=== PATIENT | female | born 1985 | race American Indian/Alaskan Native ===

== ENCOUNTER 2017-10-04 23:51 | Inpatient (IN) | payer SELFPAY ==
[2017-10-04 23:51] VITALS: BMI 30.3
[2017-10-05] MEDS ORDERED: Morphine 4 MG/ML VIAL IVP STA (00:06)
[2017-10-05] MEDS ORDERED: Morphine 4 MG/ML VIAL ONE ×2 (00:16→16:32)
--- NOTE | 2017-10-05 00:19 | ED PDOC ---
HPI: Abdomen Time Seen by Provider: 10/04/17 23:54 Chief Complaint (Nursing): Abdominal Pain Chief Complaint (Provider): abdominal pain History Per: Patient History/Exam Limitations: no limitations Onset/Duration Of Symptoms: Days Outside of [place] travel?: No Current Symptoms Are (Timing): Still Present Location Of Pain/Discomfort: Diffuse Additional Complaint(s): 32 year old female presents to the ED complaining of abdominal girth and pain onset one month. Patient was seen in [facility] and diagnosed with necrotic fibroid and was transferred to [facility] for further evaluation. Denies nausea, vomiting, and diarrhea. PMD: Provider TBD Past Medical History Reviewed: Historical Data, Nursing Documentation, Vital Signs Vital Signs: Last Vital Signs Temp 97.5 F L 10/05/17 02:50 Pulse 60 10/05/17 02:50 Resp 18 10/05/17 02:50 BP 127/81 10/05/17 02:50 Pulse Ox 99 10/05/17 02:50 - Medical History PMH: No Chronic Diseases Denies: Depression - Family History Family History: States: Unknown Family Hx - Home Medications Home Medications: Ambulatory Orders Medication Instructions Recorded No Known Home Med 12/18/11 - Allergies Allergies/Adverse Reactions: Allergies Allergy/AdvReac Type Severity Reaction Status Date / Time No Known Allergies Allergy Verified 12/18/11 12:11 Review of Systems ROS Statement: Except As Marked, All Systems Reviewed And Found Negative Gastrointestinal: Positive for: Abdominal Pain. Negative for: Nausea, Vomiting , Diarrhea Psych: Negative for: Suicidal ideation (homicidal ideation) Physical Exam - Reviewed Nursing Documentation Reviewed: Yes Vital Signs Reviewed: Yes - Physical Exam Appears: Positive for: Well, Non-toxic, No Acute Distress Head Exam: Positive for: ATRAUMATIC, NORMAL INSPECTION, NORMOCEPHALIC Skin: Positive for: Normal Color, Warm, Dry Eye Exam: Positive for: EOMI, Normal appearance, PERRL ENT: Positive for: Normal ENT Inspection Neck: Positive for: Normal, Painless ROM, Supple. Negative for: Decreased ROM Cardiovascular/Chest: Positive for: Regular Rate, Rhythm. Negative for: Murmur Respiratory: Positive for: Normal Breath Sounds. Negative for: Decreased Breath Sounds, Accessory Muscle Use, Respiratory Distress Gastrointestinal/Abdominal: Positive for: Tenderness (firm), Distended Extremity: Positive for: Normal ROM. Negative for: Tenderness, Pedal Edema, Deformity Neurologic/Psych: Positive for: Alert, Oriented (x3) - ECG O2 Sat by Pulse Oximetry: 98 (RA) Pulse Ox Interpretation: Normal Medical Decision Making Medical Decision Making: Time: 5 A/P: Patient with no past medical history presenting with abdominal mass, likely fibroid that is now necrotic based on prior workup at [place]. Dr. Posadas to consult, will appreciate recommendations. Initial Plan: --Morphine 2mg --Reevaluation 129 Patient still having pain. Patient NPO till 2AM, will give 2 tablets of percocet for breakthrough pain. Patient admitted to Dr. Posadas's service. Scribe Attestation: Documented by Richard Lieberman, acting as a scribe for Lj Blount MD Provider Scribe Attestation: All medical record entries made by the Scribe were at my direction and personally dictated by me. I have reviewed the chart and agree that the record accurately reflects my personal performance of the history, physical exam, medical decision making, and the department course for this patient. I have also personally directed, reviewed, and agree with the discharge instructions and disposition. Disposition - Clinical Impression Clinical Impression: Abdominal mass - Patient ED Disposition Is Patient to be Admitted: Yes - Disposition Disposition Time: 01:00 Condition: FAIR
[2017-10-05] MEDS ORDERED: Oxycodone/Acetaminophen 5/325 mg Tab PO STA (01:43)
--- NOTE | 2017-10-05 01:43 | CP.PCM.HP ---
History of Present Illness - History of Present Illness History of Present Illness: CC: abdominal pain HPI: 32 YO with no sig PMH was transferred from [facility] for abdominal pain with dx of necrotic fibroids. Pt states that she has had occasional abdominal pain x 1 month but today her abdominal pain came suddenly while at work and persisted. Pain is rated as a 7/10 and generally located around umbilicus area in her abdomen. Additionally, pt states that she has had increase vaginal bleeding during her mensuration, normally her periods last 6 days but in the last 3 month her periods last 9 day, using up to 14 pads a day on first 3 days. Last seen by OBGYN 10 yrs ago, pap at the time was normal per pt. Pt would like to be in the future. Denies chest pain, dyspnea, headache, dizziness, n/d/v/c, chills and fever. PMH: denies GYnHx: regular periods, every month lasting 6 days (D1 light, 2-3 heavy, 4-6 light), 9 days in the past 3 months (D1 light, D2-3 heavy, D4-6 medium and D7-9 light). Last pap 10 yrs ago, normal per pt. SurgH: L knee surgery FH: denies SH: Drinks wine occasionally, smoking <10 cig a day, denies illicit drug use Meds: denies Allergies: NKDA Present on Admission - Present on Admission Any Indicators Present on Admission: No Review of Systems - Constitutional Constitutional: absent: Chills, Fever, Headache, Malaise - Cardiovascular Cardiovascular: absent: Chest Pain, Dyspnea, Palpitations - Respiratory Respiratory: absent: Cough, Dyspnea - Gastrointestinal Gastrointestinal: Abdominal Pain. absent: Constipation, Nausea, Vomiting - Reproductive: Female Reproductive:Female: Menses >/= 8 Days, Normal Menses - Neurological Neurological: absent: Dizziness, Headaches, Syncope - Endocrine Endocrine: absent: Fatigue, Palpitations Past Patient History - Infectious Disease Hx of Infectious Diseases: None - Past Social History Smoking Status: Light Smoker < 10 Cigarettes Daily Alcohol: Occasional Drugs: Denies Home Situation {Lives}: Friends - PSYCHIATRIC Hx Depression: No - SURGICAL HISTORY Other/Comment: L knee surgery - ANESTHESIA Hx Anesthesia: Yes Hx Anesthesia Reactions: No Hx Malignant Hyperthermia: No Meds Allergies/Adverse Reactions: Allergies Allergy/AdvReac Type Severity Reaction Status Date / Time No Known Allergies Allergy Verified 12/18/11 12:11 Physical Exam - Head Exam Head Exam: ATRAUMATIC, NORMOCEPHALIC - Eye Exam Eye Exam: EOMI, Normal appearance - ENT Exam ENT Exam: Mucous Membranes Moist, Normal Exam - Respiratory Exam Respiratory Exam: Clear to Auscultation Bilateral, NORMAL BREATHING PATTERN - Cardiovascular Exam Cardiovascular Exam: REGULAR RHYTHM, +S1, +S2 - GI/Abdominal Exam GI & Abdominal Exam: Distended, Normal Bowel Sounds, Soft, Tenderness Additional comments: Abdomen is mildly distended, there is a large mass appreciated on exam 3cm above the umbilicus. Tenderness to palpation of the mass. - Extremities Exam Extremities exam: Positive for: full ROM, normal inspection - Neurological Exam Neurological exam: Alert, CN II-XII Intact, Oriented x3 - Psychiatric Exam Psychiatric exam: Normal Affect, Normal Mood - Skin Skin Exam: Dry, Intact, Normal Color, Warm Results - Vital Signs Recent Vital Signs: Last Vital Signs Temp 98.4 F 10/04/17 23:52 Pulse 81 10/04/17 23:52 Resp 18 10/04/17 23:52 BP 126/85 10/04/17 23:52 Pulse Ox 98 10/05/17 00:37 Assessment & Plan - Assessment and Plan (Free Text) Assessment: 32 YO female with no sig PMH is admitted for abdominal pain with dx of necrotic fibroid. Uterine Mass; abdominal pain -likely Necrotic fibroid; differentials include ovarian/uterine neoplasm -CT of abdomen and pelvis; large mass within the abdomen and pelvis measuring 21.3x14.7x24.8cm. This is contiguous with the fundus of the uterus with areas of cystic or necrotic change. -hb/hvt 11.4/35, stable -VS stable, and pt remains afebrile -Recs include myomectomy to remove the fibroid/s; likely OR for myomectomy vs hysterectomy in AM -NPO after 2AM -IVF: LR @ 125ml/hr -Pain management: Ibuprofen, Morphine -Type and screen -MRI of Pelvis w/wo contrast in AM Case discussed Dr. Posadas
[2017-10-05] MEDS: Morphine 4 MG/ML VIAL IVP PRN ×4 (07:39→16:44)
[2017-10-05 12:01] LABS: MEAN CELL VOLUME 86.3 fl (81.0-99.0); MEAN CORPUSCULAR HEMOGLOBIN 28.1 pg (27.0-31.0); MEAN CORPUSCULAR HGB CONC 32.5 g/dL (33.0-37.0); RBC 3.91 Mil/uL (3.80-5.20); RED CELL DISTRIBUTION WIDTH 17.1 % (11.5-14.5); WHITE BLOOD COUNT 7.1 K/uL (4.8-10.8)
[2017-10-05 12:16] LABS: BLOOD UREA NITROGEN 12 mg/dl (7-17); GFR AFRICAN-AMERICAN > 60; GFR NON-AFRICAN AMERICAN 58
--- NOTE | 2017-10-05 12:48 | MRI ---
PROCEDURE: MRI pelvis HISTORY: Pelvic mass COMPARISON: Not available TECHNIQUE: Multiplanar, multi sequence imaging of the pelvis was performed without intravenous gadolinium administration. FINDINGS: The uterus contains multiple low signal masses consistent with fibroids. The largest such mass is seen in a right sided intramural/submucosal location, measuring 3.3 cm in diameter. Two anterior lower uterine segment fibroids measure 1.2 cm and 1.4 cm, respectively. A left-sided lower uterine segment fibroid measures 8 mm. A left-sided uterine body fibroid measures 1.5 cm. The endometrium is unremarkable aside from mass effect arising from the right-sided submucosal fibroid. There is no fluid seen within the uterus. Both ovaries are identified and are normal in size and morphology. There is mild generalized ascites. A cylindrical low signal masses seen in the right side of the vagina most likely representing a tampon. . There is a very large heterogeneous low signal mass seen in the upper pelvis extending into the abdomen. The full extent of this mass is not evident on this examination. In the transverse plane, the visualized portion of the mass measures 18.7 cm transversely by 10.0 cm A-P in maximal extent. No direct connection with the uterus is established. The possibility of a pedunculated uterine fibroid may be considered although the appearance is not pathognomonic. There is no pelvic lymphadenopathy. The urethra is unremarkable. The visualized osseous structures demonstrate unremarkable marrow signal. IMPRESSION: Large abdominal mass extending into the superior pelvis measures 18.7 cm in greatest dimension in the visualized portion. Uncertain significance. See above. Multiple uterine fibroids. Ascites.
--- NOTE | 2017-10-05 12:49 | MRI ---
PROCEDURE: MRI abdomen HISTORY: pelvic mass COMPARISON: Not available TECHNIQUE: Multi sequence, multiplanar imaging of the abdomen was performed without intravenous gadolinium administration. FINDINGS: There is a large abdominal mass, likely intraperitoneal, measuring approximately 20.6 x 26.8 x 14.4 cm. There are several cystic components to this mass, the largest of which is irregular in shape, in the superior extent of the mass, and measures roughly 10.9 x 9.3 x 15.2 cm. The mass is heterogeneous but predominantly low in signal. Its signal characteristics are nonspecific. The mass appears discontinuous with the uterus. It abuts the right ovary but does not appear to be continuous with the ovary. The left ovary is not continuous with this mass. There is no other mass identified. There is no retroperitoneal lymphadenopathy There is mild generalized ascites. The liver is normal in size, contour and signal intensity. There is no biliary dilatation. There is no mass. The spleen is unremarkable in appearance. There is no pancreatic mass or pancreatic ductal dilatation seen. There is no adrenal mass identified. There is no renal mass or hydronephrosis. IMPRESSION: Large heterogeneous complex intraperitoneal mass measuring 26.8 cm greatest dimension. Mild generalized ascites. No other significant abnormality.
[2017-10-05] MEDS: Lactated Ringer's 1,000 ML IV SCH ×3 (13:33→22:08)
[2017-10-05] MEDS ORDERED: Propofol 10 mg/ml Inj (20 ML) ONE ×2 (14:07→14:46)
[2017-10-05] MEDS ORDERED: Succinylcholine 200 mg/10 ml Inj IV ONE (14:08)
[2017-10-05] MEDS ORDERED: Lactated Ringer's 1,000 ML IV ONE ×2 (14:24→15:50)
[2017-10-05] MEDS ORDERED: Midazolam 2 MG/2 ML VIAL ONE (14:27)
[2017-10-05] MEDS ORDERED: Bupivacaine 0.5% Inj(30mL) ONE (14:34)
[2017-10-05] MEDS ORDERED: Lidocaine 2% Inj (20ml) ONE (14:34)
[2017-10-05] MEDS ORDERED: Vasopressin 20 Units/ml Inj ONE (14:34)
[2017-10-05] MEDS ORDERED: Rocuronium 10 mg/ml (5 ml) ONE (14:35)
[2017-10-05] MEDS ORDERED: Phenylephrine 10 mg/ml Inj ONE (14:38)
[2017-10-05] MEDS ORDERED: ePHEDrine 50 mg/ml Inj ONE (14:42)
[2017-10-05] MEDS ORDERED: Morphine 4 MG/ML VIAL IVP PRN (14:53)
[2017-10-05] MEDS ORDERED: Desflurane Inhalation Anesthetic Liq (240 ml) ONE (14:58)
[2017-10-05] MEDS ORDERED: Dexamethasone 4 mg/1 ml ONE (15:02)
[2017-10-05] MEDS ORDERED: Neostigmine 1:1000 (1 mg/ml) Inj ONE (15:02)
[2017-10-05] MEDS: Piperacillin/Tazobact 3.375 GM in Sodium Chloride 0.9% 100 ML IVPB SCH (21:57)
[2017-10-06] MEDS: Piperacillin/Tazobact 3.375 GM in Sodium Chloride 0.9% 100 ML IVPB SCH (04:58)
--- NOTE | 2017-10-06 07:09 | CP.PCM.PN ---
<Mari Bynum - Last Filed: 10/06/17 07:30> Subjective - Date & Time of Evaluation Date of Evaluation: 10/06/17 Time of Evaluation: 07:07 - Subjective Subjective: S/P abdominal myomectomy POD1 S: No acute overnight events. pt endorsing abdominal pain with motion, but tolerable with medications. Passing gas, no BM. Denies chest pain, headache, dizziness. dyspnea, n/v/d/c and remains afebrile. Objective - Vital Signs/Intake and Output Vital Signs (last 24 hours): Temp Pulse Resp BP Pulse Ox 98.3 F 84 20 133/77 99 10/06/17 05:00 10/06/17 05:00 10/06/17 05:00 10/06/17 05:00 10/06/17 05:00 - Medications Medications: Current Medications Acetaminophen (Tylenol 325mg Tab) 650 mg PO Q6 PRN PRN Reason: Fever >100.4 F Lactated Ringer's (Lactated Ringer's) 1,000 mls @ 125 mls/hr IV .Q8H [facility] Last Admin: 10/05/17 22:08 Dose: Not Given Piperacillin Sod/Tazobactam (Sod 3.375 gm/ Sodium Chloride) 100 mls @ 100 mls/ hr IVPB Q6 GUY PRN Reason: Protocol Last Admin: 10/06/17 04:58 Dose: 100 mls/hr Ibuprofen (Motrin Tab) 600 mg PO Q6H PRN PRN Reason: Pain, Mild (1-3) Morphine Sulfate (Morphine) 2 mg IVP Q6 PRN PRN Reason: Pain, moderate (4-7) Last Admin: 10/05/17 13:32 Dose: 2 mg Morphine Sulfate (Morphine [employer] 1 Mg/Ml) 0 mg IV PRN PRN; Protocol PRN Reason: Pain, severe (8-10) Last Admin: 10/05/17 16:55 Dose: 1 mg - Labs Labs: 10/05/17 11:30 10/05/17 11:30 - Constitutional Appears: No Acute Distress - Head Exam Head Exam: ATRAUMATIC, NORMOCEPHALIC - Eye Exam Eye Exam: EOMI, Normal appearance - ENT Exam ENT Exam: Mucous Membranes Moist - Neck Exam Neck Exam: Full ROM - Respiratory Exam Respiratory Exam: Clear to Ausculation Bilateral, NORMAL BREATHING PATTERN - Cardiovascular Exam Cardiovascular Exam: REGULAR RHYTHM, +S1, +S2. absent: Tachycardia - GI/Abdominal Exam GI & Abdominal Exam: Soft, Hyperactive Bowel Sounds. absent: Distended Additional comments: Vertical mid-line incision noted, dressing intact. No exudates noted. Tenderness around incision site. - Extremities Exam Extremities Exam: Full ROM. absent: Calf Tenderness, Pedal Edema, Tenderness Additional comments: scds in place - Neurological Exam Neurological Exam: Alert, Awake, Oriented x3 - Psychiatric Exam Psychiatric exam: Normal Affect, Normal Mood - Skin Skin Exam: Intact, Normal Color, Warm Assessment and Plan - Assessment and Plan (Free Text) Assessment: 32 YO female with no sig PMH is admitted for abdominal pain with dx of necrotic fibroid. S/p abdominal myomectomy, POD1 Necrotic fibroid; abdominal pain -CT of abd/pel:large mass within the abdomen and pelvis measuring 21.3x14.7x24.8cm; areas of cystic or necrotic change. -MRI abd/pel: large heterogenous complex intraperitoneal mass measuring 26.38cn at greatest dimension. -s/p Myomectomy, POD1 -hb/hvt 11.4/35, stable; will follow up post op CBC -VS stable, and pt remains afebrile -abx: zosyn -will advance diet as tolerated -IVF: LR @ 125ml/hr -Pain management: Ibuprofen, Morphine -continue incentive spirometry, scds <Rebecca Aguilar - Last Filed: 10/06/17 10:20> Objective - Vital Signs/Intake and Output Vital Signs (last 24 hours): Temp Pulse Resp BP Pulse Ox 98.4 F 88 20 116/77 97 10/06/17 09:00 10/06/17 09:00 10/06/17 09:00 10/06/17 09:00 10/06/17 09:00 - Medications Medications: Current Medications Acetaminophen (Tylenol 325mg Tab) 650 mg PO Q6 PRN PRN Reason: Fever >100.4 F Docusate Sodium (Colace) 200 mg PO DAILY [facility] Last Admin: 10/06/17 10:08 Dose: Not Given Lactated Ringer's (Lactated Ringer's) 1,000 mls @ 100 mls/hr IV .Q10H [facility] Last Admin: 10/06/17 10:10 Dose: Not Given Ibuprofen (Motrin Tab) 600 mg PO Q6H PRN PRN Reason: Pain, Mild (1-3) Oxycodone/Acetaminophen (Percocet 5/325 Mg Tab) 1 tab PO Q4 PRN PRN Reason: Pain, moderate (4-7) Stop: 10/09/17 07:32 Last Admin: 10/06/17 10:07 Dose: 1 tab Simethicone (Mylicon Chew Tab) 80 mg PO TID PRN PRN Reason: Flatulence - Labs Labs: 10/06/17 05:05 10/05/17 11:30 Assessment and Plan - Assessment and Plan (Free Text) Assessment: OB Hospitalist Addendum: Pt seen and examined by me. Agree w/ above/ POD 1 s/ p Abdominal myomectomy, doing well, tolerating clears. Pain controlled with po pain meds now. Continue current care. (ES)
[2017-10-06 07:35] LABS: HEMOGLOBIN 10.3 g/dL (12.0-16.0); MEAN CELL VOLUME 86.4 fl (81.0-99.0); MEAN CORPUSCULAR HGB CONC 32.4 g/dL (33.0-37.0); RBC 3.68 Mil/uL (3.80-5.20); WHITE BLOOD COUNT 13.5 K/uL (4.8-10.8)
--- NOTE | 2017-10-06 07:41 | CP.PCM.PN ---
Subjective - Date & Time of Evaluation Date of Evaluation: 10/06/17 Time of Evaluation: 07:37 - Subjective Subjective: 32 yo s/p Exploratory Laparotomy and myomectomy POD #1 stable and doing well. Denies CP, SOB, no N/V, abdominal pain tolerable with pain medication, minimal vaginal bleeding, UO adequate overnight, no fever, pt desires to drink, no flatus. Objective - Vital Signs/Intake and Output Vital Signs (last 24 hours): Temp Pulse Resp BP Pulse Ox 98.3 F 84 20 133/77 99 10/06/17 05:00 10/06/17 05:00 10/06/17 05:00 10/06/17 05:00 10/06/17 05:00 - Medications Medications: Current Medications Acetaminophen (Tylenol 325mg Tab) 650 mg PO Q6 PRN PRN Reason: Fever >100.4 F Docusate Sodium (Colace) 200 mg PO DAILY GUY Lactated Ringer's (Lactated Ringer's) 1,000 mls @ 100 mls/hr IV .Q10H [facility]Y Ibuprofen (Motrin Tab) 600 mg PO Q6H PRN PRN Reason: Pain, Mild (1-3) Oxycodone/Acetaminophen (Percocet 5/325 Mg Tab) 1 tab PO Q4 PRN PRN Reason: Pain, moderate (4-7) Stop: 10/09/17 07:32 Simethicone (Mylicon Chew Tab) 80 mg PO TID PRN PRN Reason: Flatulence - Labs Labs: 10/05/17 11:30 10/05/17 11:30 - Constitutional Appears: Well, Non-toxic, No Acute Distress - Respiratory Exam Respiratory Exam: NORMAL BREATHING PATTERN - Cardiovascular Exam Cardiovascular Exam: REGULAR RHYTHM - GI/Abdominal Exam Additional comments: soft, no rebound, no guarding, appropriate pain around incision, +BS in four quadrants Incision clean/dry/intact - Extremities Exam Extremities Exam: Normal Inspection Assessment and Plan - Assessment and Plan (Free Text) Plan: A/P 32 s/p Ex Lap and Myomectomy, POD #1 1. Patient stable and doing well. Discontinue DRILL DOCTOR and start PO Percocet/Motrin today 2. Discontinue abx 3. Advance diet slowly, start with clear liquids 4. Mylicon, colace 5. Discontinue Morris and ambulate as tolerated 6. IVF reduced to 100ml/hr
[2017-10-06] MEDS: Oxycodone/Acetaminophen 5/325 mg Tab PO PRN ×3 (10:07→22:35)
[2017-10-06] MEDS: Lactated Ringer's 1,000 ML IV SCH ×2 (10:10→18:55)
--- NOTE | 2017-10-06 12:31 | OP ---
PROCEDURE DATE: 10/05/2017 PREOPERATIVE DIAGNOSIS: Suspected large uterine fibroid. POSTOPERATIVE DIAGNOSIS: Necrotic myomectomy of a necrotic pedunculated fibroid. PROCEDURE: Exploratory laparotomy and myomectomy. SURGEON: Little Kidd MD NIP WRAPPER: Dr. Baldomero iKdd. ANESTHESIA: General. ANESTHESIA ADMINISTERED BY: Dr. Vidales. FINDINGS: A 22 cm x 27 cm pedunculated necrotic fibroid coming off of the right uterine cornua. IV FLUID INTAKE: 1500 mL. ESTIMATED BLOOD LOSS: 150 mL. URINE OUTPUT: 150 mL. COMPLICATIONS: None. CONDITION: Stable. INDICATION: This is a 32-year-old who presented to the Emergency Room with increased abdominal pain. The patient reported having significant abdominal pain for over a month as well as increased abdominal girth that she was unable to control with weight and exercise. 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 It was found on CAT scan that she has what looks to be a 25-cm mass that looks to be a possible fibroid that was becoming necrotic and causing the patient pain. It was discussed with the patient to proceed with surgery for removal of the mass. The patient agreed with the plan. The patient was booked for surgery the following day. The patient was advised the risks and benefits of the surgery including risk of bleeding, infections, and damages to surrounding organs, which is bowel, bladder, ureter, and uterus as well as the possible need for transfusion. The patient verbalized understanding and signed the informed consent. DESCRIPTION OF PROCEDURE: The patient was taken to the OR. Ancef was given preoperatively. The patient was prepped and draped in normal sterile in the dorsal supine position. Before prepping the patient, the patient's abdomen was again reinspected and it was felt a mass that was significantly elevated in the patient's abdomen. It was decided that we would proceed with vertical incision, as the patient was prepped, we carried through with the scalpel to the umbilicus, we carried the incision down with Bovie through the subcutaneous fat into the fascia. The fascia was incised at the midline and the muscle was then bluntly. Peritoneum was entered with the Metzenbaum scissors. We were able to visualize the mass at this point, which looked to be a very large pedunculated fibroid coming off of the right cornua of the uterus. At this point, we extended the vertical incision past the umbilicus a few centimeters. Because the mass continued, was extremely large and was difficult to remove from the abdomen, the vertical incision continues to be extended by the end at least about 5 or 6 cm above the umbilicus. At that point, we were able to completely remove the mass from the abdomen. It was found that it was coming off the cornu from an isolated , which we transected with two large Gege clamps and used a transection stitch to tamponade. The mass was then put into the pathology bucket to be sent to pathology. It was also noted that the large side was necrosing. We then imbricated that side of the cornu with multiple 0 Vicryl sutures with figure of eight and baseball stitch. We reinspected the anatomy. Bilateral tubes and ovaries were normal. There was a small fibroid we felt in the uterus may be about 0.5 cm to 1 cm. We irrigated the abdomen, again reinspected the site of transaction. We reinforced it with multiple 0 Vicryl and 2-0 Vicryl sutures again and at this point, it was now hemostatic. We closed the peritoneum with 2-0 Monocryl and the muscles were re-approximated with the same stitch. We closed the fascia with an 0 Vicryl suture in a Smead-Sharif fashion as well as reinforcing in between with interrupted PDS sutures. We irrigated the subcutaneous fat, cauterized small bleeders, and re-approximated subcutaneous fat with 2-0 Monocryl. The skin was closed with sahara. Sponge, lap, and needles were count x3. The patient was taken to recovery room in stable condition. There were no other complications. We will continue antibiotics on the patient until the next day. Little Kidd MD
[2017-10-07] MEDS: Lactated Ringer's 1,000 ML IV SCH ×2 (04:21→15:08)
[2017-10-07] MEDS: Oxycodone/Acetaminophen 5/325 mg Tab PO PRN ×2 (08:22→17:45)
[2017-10-07] MEDS: Simethicone 80 mg Chewtab PO PRN ×2 (09:24→17:46)
--- NOTE | 2017-10-07 10:53 | CP.PCM.PN ---
Subjective - Date & Time of Evaluation Date of Evaluation: 10/07/17 Time of Evaluation: 08:30 - Subjective Subjective: Patient is a 32 yo s/p exploratory laporatomy and myomectomy POD #2, currently stable and doing well. Patient denies fever, N/V, tolerating PO liquids, abdominal pain tolerable with meds, no flatus, mild vaginal bleeding, voiding and ambulating well. Objective - Vital Signs/Intake and Output Vital Signs (last 24 hours): Temp Pulse Resp BP Pulse Ox 98.5 F 83 20 118/77 98 10/07/17 08:50 10/07/17 08:50 10/07/17 08:50 10/07/17 08:50 10/07/17 08:50 - Medications Medications: Current Medications Acetaminophen (Tylenol 325mg Tab) 650 mg PO Q6 PRN PRN Reason: Fever >100.4 F Docusate Sodium (Colace) 200 mg PO DAILY [facility] Last Admin: 10/07/17 08:24 Dose: 200 mg Lactated Ringer's (Lactated Ringer's) 1,000 mls @ 100 mls/hr IV .Q10H [facility] Last Admin: 10/07/17 04:21 Dose: Not Given Ibuprofen (Motrin Tab) 600 mg PO Q6H PRN PRN Reason: Pain, Mild (1-3) Last Admin: 10/07/17 04:13 Dose: 600 mg Oxycodone/Acetaminophen (Percocet 5/325 Mg Tab) 1 tab PO Q4 PRN PRN Reason: Pain, moderate (4-7) Stop: 10/09/17 07:32 Last Admin: 10/07/17 08:22 Dose: 1 tab Simethicone (Mylicon Chew Tab) 80 mg PO TID PRN PRN Reason: Flatulence Last Admin: 10/07/17 09:24 Dose: 80 mg - Labs Labs: 10/06/17 05:05 10/05/17 11:30 - Constitutional Appears: Well, Non-toxic, No Acute Distress - Respiratory Exam Respiratory Exam: NORMAL BREATHING PATTERN - Cardiovascular Exam Cardiovascular Exam: REGULAR RHYTHM - GI/Abdominal Exam GI & Abdominal Exam: Soft, Normal Bowel Sounds Additional comments: no rebound, no gaurding, +bS in all 4 quadrants Incision clean/dry/intact with stables - Extremities Exam Extremities Exam: Normal Inspection - Skin Skin Exam: Normal Color, Warm Assessment and Plan - Assessment and Plan (Free Text) Plan: A/P 32 yo s/p ex lap/myomectomy POD #2 1. Continue current post-op orders 2. Will advance diet to soft diet 3. Percocet/Motrin prn pain 4. Mylicon and colace for constipation 5. Encourage ambulation 6. Patient for possible D/C tomorrow
[2017-10-08] MEDS: Oxycodone/Acetaminophen 5/325 mg Tab PO PRN ×2 (00:25→12:42)
[2017-10-08 08:04] VITALS: TEMP 97.6
--- NOTE | 2017-10-08 09:25 | CP.PCM.PN ---
Subjective - Date & Time of Evaluation Date of Evaluation: 10/08/17 Time of Evaluation: 09:19 - Subjective Subjective: 32 yo s/p ex lap and myomectomy stable and doing well. No CP, no SOB, no N/V, tolerating PO diet, ambulating/voiding well, abdominal pain tolerable with meds , no flatus, no BM, mild vaginal bleeding Objective - Vital Signs/Intake and Output Vital Signs (last 24 hours): Temp Pulse Resp BP Pulse Ox 97.6 F 74 18 111/70 99 10/08/17 08:03 10/08/17 08:03 10/08/17 08:03 10/08/17 08:03 10/08/17 08:03 - Medications Medications: Current Medications Acetaminophen (Tylenol 325mg Tab) 650 mg PO Q6 PRN PRN Reason: Fever >100.4 F Docusate Sodium (Colace) 200 mg PO DAILY [facility] Last Admin: 10/07/17 08:24 Dose: 200 mg Lactated Ringer's (Lactated Ringer's) 1,000 mls @ 100 mls/hr IV .Q10H GUY Last Admin: 10/07/17 15:08 Dose: Not Given Ibuprofen (Motrin Tab) 600 mg PO Q6H PRN PRN Reason: Pain, Mild (1-3) Last Admin: 10/08/17 04:21 Dose: 600 mg Oxycodone/Acetaminophen (Percocet 5/325 Mg Tab) 1 tab PO Q4 PRN PRN Reason: Pain, moderate (4-7) Stop: 10/09/17 07:32 Last Admin: 10/08/17 00:25 Dose: 1 tab Simethicone (Mylicon Chew Tab) 80 mg PO TID PRN PRN Reason: Flatulence Last Admin: 10/07/17 17:46 Dose: 80 mg - Labs Labs: 10/06/17 05:05 10/05/17 11:30 - Constitutional Appears: Well, Non-toxic - Respiratory Exam Respiratory Exam: Clear to Ausculation Bilateral, NORMAL BREATHING PATTERN - Cardiovascular Exam Cardiovascular Exam: REGULAR RHYTHM - GI/Abdominal Exam GI & Abdominal Exam: Soft, Normal Bowel Sounds Additional comments: soft, no rebound, no gaurding, Strong BS in four quadrants Dressing changed, incision clean/dry/intact, +sahara - Extremities Exam Extremities Exam: Normal Inspection Assessment and Plan - Assessment and Plan (Free Text) Plan: A/P 32 yo s/p ex lap and myomectomy 1. Patient recovering well, will advance diet to regular this morning 2. Possible discharge this afternoon when has flatus 3. Discharge instructions have been reviewed
[2017-10-08] MEDS: Simethicone 80 mg Chewtab PO PRN (11:39)
[2017-10-08 15:42] VITALS: BP 102/68; PULSE 79; RESP 20; O2SAT 98
--- NOTE | 2017-10-08 16:31 | CP.PCM.DIS ---
Provider - Provider Date of Admission: 10/05/17 00:29 Attending physician: Chris Posadas MD Time Spent in preparation of Discharge (in minutes): 40 Diagnosis - Discharge Diagnosis (1) S/P exploratory laparotomy Status: Acute (2) Uterine fibroid Status: Acute (3) Myoma Status: Acute (4) S/P myomectomy Status: Acute (5) Anemia Status: Chronic Hospital Course - Lab Results Lab Results: Most Recent Lab Values WBC 13.5 K/uL (4.8-10.8) H D 10/06/17 05:05 RBC 3.68 Mil/uL (3.80-5.20) L 10/06/17 05:05 Hgb 10.3 g/dL (12.0-16.0) L 10/06/17 05:05 Hct 31.8 % (34.0-47.0) L 10/06/17 05:05 MCV 86.4 fl (81.0-99.0) 10/06/17 05:05 MCH 28.0 pg (27.0-31.0) 10/06/17 05:05 MCHC 32.4 g/dL (33.0-37.0) L 10/06/17 05:05 RDW 17.0 % (11.5-14.5) H 10/06/17 05:05 Plt Count 258 K/uL (130-400) 10/06/17 05:05 Sodium 138 mmol/l (132-148) 10/05/17 11:30 Potassium 3.7 MMOL/L (3.6-5.0) 10/05/17 11:30 Chloride 103 mmol/L (98-107) 10/05/17 11:30 Carbon Dioxide 24 mmol/L (22-30) 10/05/17 11:30 Anion Gap 15 (10-20) 10/05/17 11:30 BUN 12 mg/dl (7-17) 10/05/17 11:30 Creatinine 1.1 mg/dl (0.7-1.2) 10/05/17 11:30 Est GFR ( Amer) > 60 10/05/17 11:30 Est GFR (Non-Af Amer) 58 10/05/17 11:30 Random Glucose 82 mg/dL (65-105) 10/05/17 11:30 Calcium 9.0 mg/dL (8.4-10.2) 10/05/17 11:30 Beta HCG, Quant < 2.39 mIU/mL 10/05/17 05:30 Blood Type A POSITIVE 10/05/17 07:50 Blood Type Confirm A POSITIVE 10/05/17 08:07 Antibody Screen Negative 10/05/17 07:50 Crossmatch See Detail 10/05/17 07:50 BBK History Checked No verified bt 10/05/17 07:50 - Hospital Course Hospital Course: 32 YO with no PMH was transferred from [facility] for evaluation and treatment of abdominal/Pelvic pain with possible dx of necrotic fibroids. CT of abd/pelvis showed large mass within the abdomen and pelvis measuring 21.3x14.7x24.8cm; areas of cystic or necrotic change. MRI abd/pelvic was done: large heterogenous complex intraperitoneal mass measuring 26.38cn at greatest dimension. Patient was taken to OR and s/p Ex lap and Myomectomy, POD#4. Patient had normal post op progression, tolerating PO, Ambulating, good urine output and passing flatus. Patient discharged home with instruction to follow up with Dr. Kidd in 10 to 11 days. - Date & Time of H&P Date of H&P: 10/05/17 Time of H&P: 01:31 Discharge Exam - Head Exam Head Exam: ATRAUMATIC, NORMOCEPHALIC - Eye Exam Eye Exam: EOMI Pupil Exam: NORMAL ACCOMODATION - Respiratory Exam Respiratory Exam: Clear to PA & Lateral, NORMAL BREATHING PATTERN - Cardiovascular Exam Cardiovascular Exam: REGULAR RHYTHM - GI/Abdominal Exam GI & Abdominal Exam: Normal Bowel Sounds, Soft (Dressing changed this morning , incision clean/dry/intact, +sahara), Tenderness (mild ). absent: Distended, Guarding, Rebound, Rigid - Extremities Exam Extremities exam: normal capillary refill, normal inspection - Back Exam Back exam: NORMAL INSPECTION - Neurological Exam Neurological exam: Alert, Oriented x3 - Psychiatric Exam Psychiatric exam: Normal Mood - Skin Skin Exam: Dry, Intact, Normal Color, Warm Discharge Plan - Follow Up Plan Condition: FAIR Disposition: HOME/ ROUTINE Instructions: Uterine Fibroids (DC), Exploratory Laparotomy (DC), Myomectomy ( DC) Additional Instructions: follow up with Dr. Kidd 10-11 days Referrals: Little Kidd MD [Staff Provider] - Chris Posadas MD [Staff Provider] -
[2017-10-08] MEDS: Lactated Ringer's 1,000 ML IV SCH (17:34)
== END 2017-10-08 17:45 | disposition home or self-care (01) | DRG 743 ==
LOC: H.ER 23:51 → H.ERHOLD 10-05 00:29 → H.MEDSURG1 10-05 02:35
PROVIDERS: ADMIT Obstetrics & Gynecology; ATTEND Obstetrics & Gynecology
PROC: 0UB90ZZ Excision of Uterus, Open Approach (ICD-10-PCS; principal; 2017-10-05 14:00)
DX: D25.9 Leiomyoma of uterus, unspecified (principal); F17.210 Nicotine dependence, cigarettes, uncomplicated; D64.9 Anemia, unspecified